=== PATIENT | female | born 1980 | race African-American/Black ===

== ENCOUNTER 2020-07-06 06:18 | Emergency (ER) | payer OTHER ==
[~2020-07-06] VITALS: Ht 165.1 cm; Wt 52.6 kg
[~2020-07-06 06:18] MED LIST: CHLORDIAZEPOXID10 MG PO; IBUPROFEN 600600 M1 PO; NORCO 5-325 TA1 EACH PO; VENTOLIN HFA INH8 GM INH
[2020-07-06] MEDS ORDERED: CYCLOBENZAPRINE5 MG PO (06:35)
[2020-07-06] MEDS ORDERED: CLONIDINE HCL0.1 MG PO (06:35)
[2020-07-06] MEDS ORDERED: GABAPENTIN600 M1 PO (06:35)
[2020-07-06] MEDS ORDERED: NORVASC5 MG PO (06:36)
[2020-07-06] MEDS ORDERED: PROTONIX40 M2 PO (06:36)
[2020-07-06 07:27] LABS: ABSOLUTE NEUTROPHILS 4.2 thou/uL (1.4-8.2); BASOPHILS 0.5 % (0.0-2.0); EOSINOPHILS 0.2 % (0.0-3.0); HEMATOCRIT 40.8 % (37.0-47.0); HEMOGLOBIN 13.8 gm/dL (12.0-15.0); LYMPHOCYTES 14.7 % (24.0-44.0); MCH 32.8 pg (26.0-34.0); MCHC 33.7 g/dL (28.0-37.0); MCV 97.2 fL (80.0-100.0); MONOCYTES 9.5 % (1.0-8.0); PLATELET COUNT 248 thou/uL (150-400); POLYS 75.1 % (36.0-66.0); RDW 18.7 % (10.5-14.5); WBC 5.6 thou/uL (4.0-11.0)
[2020-07-06 07:45] LABS: CALCIUM 8.6 mg/dL (8.5-10.1); CREATININE 0.7 mg/dL (0.6-1.0); POTASSIUM 3.5 mmol/L (3.5-5.1)
[2020-07-06] MEDS ORDERED: NEURONTIN300 MG PO (07:55)
[2020-07-06] MEDS ORDERED: CEPHALEXIN500 MG PO (07:55)
[2020-07-06 08:14] VITALS: BP 130/89
[2020-07-06 10:20] LABS: ANISOCYTOSIS 2+; MACROCYTES 1+
== END 2020-07-06 08:14 | disposition home or self-care (01) ==
LOC: ER 06:18
PROVIDERS: Emergency Medicine
DX: L03.011 Cellulitis of right finger (principal); G62.9 Polyneuropathy, unspecified; F41.9 Anxiety disorder, unspecified; J45.909 Unspecified asthma, uncomplicated; F17.210 Nicotine dependence, cigarettes, uncomplicated; Z79.899 Other long term (current) drug therapy